=== PATIENT | male | born 1960 | race Caucasian/White ===

== ENCOUNTER 2018-09-30 10:13 | Emergency (ER) | payer OTHER ==
[~2018-09-30] VITALS: Ht 167.6 cm; Wt 77.1 kg
[2018-09-30] MEDS ORDERED: CITALOPRAM HBR20 MG PO (10:24)
[2018-09-30] MEDS ORDERED: [UNRECOGNIZED DRUG - OTHER] PO (10:24)
== END 2018-09-30 13:23 | disposition home or self-care (01) ==
LOC: ER 10:13
DX: S61.421A Laceration with foreign body of right hand, initial encounter (principal); W45.8XXA Other foreign body or object entering through skin, initial encounter; Y93.89 Activity, other specified; Y92.098 Other place in other non-institutional residence as the place of occurrence of the external cause; Y99.8 Other external cause status

== ENCOUNTER 2022-09-04 15:12 | Outpatient (CLI) | payer OTHER ==
[~2022-09-04 15:12] MED LIST: CITALOPRAM HBR20 MG PO; [UNRECOGNIZED DRUG - OTHER] PO
== END 2022-09-04 15:15 | disposition home or self-care (01) ==
LOC: RAD 15:12
DX: M41.9 Scoliosis, unspecified (principal)